=== PATIENT | female | born 1980 | race Asian ===

== ENCOUNTER 2017-05-31 14:05 | Emergency (ER) | payer OTHER ==
[~2017-05-31] VITALS: Ht 154.9 cm; Wt 77.1 kg
[2017-05-31 14:14] VITALS: BP_SYST 155
[2017-05-31 15:14] LABS: BASOPHILS % (AUTO) 0.4 % (0.0-2.0); EOSINOPHILS # (AUTO) 0.2 K/uL (0.0-0.4); EOSINOPHILS % (AUTO) 2.4 % (0.0-4.0); HEMATOCRIT 35.2 % (36-48); HEMOGLOBIN 11.8 g/dL (12.0-16.0); LYMPHOCYTES # (AUTO) 2.5 K/uL (1.0-5.5); LYMPHOCYTES % (AUTO) 28.9 % (20.5-51.5); MEAN CORPUSCULAR HEMOGLOBIN 28 pg (27-31); MEAN CORPUSCULAR HGB CONC 33 % (32-36); MEAN CORPUSCULAR VOLUME 84 fL (79.0-98.0); MONOCYTES # (AUTO) 0.6 K/uL (0.0-1.0); MONOCYTES % (AUTO) 6.4 % (1.7-9.3); NEUTROPHILS # (AUTO) 5.4 K/uL (1.8-7.7); NEUTROPHILS % (AUTO) 61.9 % (40.0-70.0); PLATELET COUNT (AUTO) 250 K/uL (130-430); RED BLOOD CELL COUNT(AUTO) 4.18 MIL/uL (4.2-6.2); RED CELL DISTRIBUTION WIDTH 13.9 % (9.0-15.0); WHITE BLOOD COUNT (AUTO) 8.7 K/uL (4.8-10.8)
[2017-05-31 15:42] LABS: CALCIUM 9.5 mg/dL (8.4-11.0); CREATININE 0.69 mg/dL (0.55-1.30); POTASSIUM 3.8 mmol/L (3.5-5.1)
[2017-05-31 15:47] LABS: BILIRUBIN,URINE NEGATIVE (NEGATIVE); BLOOD, URINE 3+ (NEGATIVE); CLARITY/URINE HAZY (CLEAR); COLOR,URINE YELLOW (YELLOW); GLUCOSE,URINE NEGATIVE (NEGATIVE); KETONES,URINE NEGATIVE (NEGATIVE); LEUKOCYTE ESTERASE ,URINE NEGATIVE (NEGATIVE); NITRITE, URINE NEGATIVE (NEGATIVE); PROTEIN URINE NEGATIVE (NEGATIVE); UROBILINOGEN,URINE 0.2 (0.2-1.0)
[2017-05-31 16:01] LABS: BACTERIA,URINE FEW /HPF (None Seen); RBC,URINE >100 /HPF (0-3); WBC,URINE 0-3 /HPF (0-3)
[2017-05-31 16:02] LABS: MUCUS,URINE None Seen /LPF (None Seen); URINE AMORPHOUS PHOSPHATES 1+ /HPF (None Seen)
[2017-05-31 16:10] LABS: ALBUMIN 3.5 g/dL (3.4-4.8); TOTAL BILIRUBIN 0.2 mg/dL (0.0-1.0)
[2017-05-31 17:51] VITALS: BP_SYST 161
[2017-05-31] MEDS ORDERED: ACETAMINOPHEN 500 MG TABLET PO ONE (18:30)
== END 2017-05-31 18:44 | disposition home or self-care (01) ==
LOC: SED 14:05
DX: O20.0 Threatened abortion (principal); I10 Essential (primary) hypertension; G43.909 Migraine, unspecified, not intractable, without status migrainosus; L40.9 Psoriasis, unspecified; Z3A.01 Less than 8 weeks gestation of pregnancy
CPT/HCPCS: 36415; 72170-TC; 76801; 76817; 80053; 81000-TC; 81025; 83690-TC; 84702-TC; 85025; 86901; 99285

== ENCOUNTER 2017-06-15 11:35 | Day surgery (SDC) | payer OTHER ==
[~2017-06-15] VITALS: Ht 154.9 cm; Wt 85.3 kg
[2017-06-15 12:31] LABS: HEMATOCRIT 26.6 % (36-48); HEMOGLOBIN 8.8 g/dL (12.0-16.0); MEAN CORPUSCULAR HEMOGLOBIN 28 pg (27-31); MEAN CORPUSCULAR HGB CONC 33 % (32-36); MEAN CORPUSCULAR VOLUME 86 fL (79.0-98.0); PLATELET COUNT (AUTO) 316 K/uL (130-430); RED BLOOD CELL COUNT(AUTO) 3.11 MIL/uL (4.2-6.2); WHITE BLOOD COUNT (AUTO) 19.8 K/uL (4.8-10.8)
[2017-06-15 12:33] LABS: BILIRUBIN,URINE 1+ (NEGATIVE); BLOOD, URINE 3+ (NEGATIVE); CLARITY/URINE SL HAZY (CLEAR); COLOR,URINE YELLOW (YELLOW); GLUCOSE,URINE NEGATIVE (NEGATIVE); KETONES,URINE 3+ (NEGATIVE); LEUKOCYTE ESTERASE ,URINE TRACE (NEGATIVE); NITRITE, URINE NEGATIVE (NEGATIVE); PROTEIN URINE 1+ (NEGATIVE); UROBILINOGEN,URINE 0.2 (0.2-1.0)
[2017-06-15 12:34] LABS: CREATININE 0.61 mg/dL (0.55-1.30); POTASSIUM 3.6 mmol/L (3.5-5.1)
[2017-06-15 12:48] LABS: BACTERIA,URINE FEW /HPF (None Seen); RBC,URINE 20-50 /HPF (0-3)
[2017-06-15 12:49] LABS: MUCUS,URINE 2+ /LPF (None Seen)
[2017-06-15] MEDS ORDERED: fentaNYL CITRATE/PF 100 MCG/2 ML AMP IVP PRN ×2 (13:15)
[2017-06-15] MEDS ORDERED: ONDANSETRON HCL 4 MG/2 ML VIAL IVP PRN ×2 (13:15→13:30)
[2017-06-15] MEDS ORDERED: KETOROLAC TROMETHAMINE 30 MG VIAL IVP PRN (13:15)
[2017-06-15] MEDS ORDERED: fentaNYL CITRATE/PF 100 MCG/2 ML AMP IVP ONE (13:30)
[2017-06-15] MEDS ORDERED: PROMETHAZINE HCL 25 MG/ML AMP IM PRN ×2 (13:30)
[2017-06-15] MEDS ORDERED: NS IRRIG SOLN 1000 ML IR ONE (13:30)
[2017-06-15] MEDS ORDERED: MIDAZOLAM HCL 5 MG/ML VIAL (VERSED) IV ONE (13:30)
[2017-06-15] MEDS ORDERED: SEVOFLURANE 15 MIN GAS INH ONE (13:30)
[2017-06-15] MEDS ORDERED: CLINDAMYCIN PHOSPHATE 600 MG/4 ML VIAL IV ONE (13:30)
[2017-06-15] MEDS ORDERED: SILVER NITRATE APPLICATOR 1 STICK STICK..EA. TP ONE (13:30)
[2017-06-15] MEDS ORDERED: LR 1,000 ML IV.SOLN IV ONE (13:30)
[2017-06-15] MEDS ORDERED: PROPOFOL 200MG/ 20ML VIAL (DIPRIVAN) IV ONE (13:30)
[2017-06-15 13:39] LABS: BAND % (MANUAL) 1 % (0-6)
[2017-06-15 13:40] LABS: BASOPHILS % (MANUAL) 0 % (0-2); EOSINOPHILS % (MANUAL) 1 % (0-7); LYMPHOCYTES % (MANUAL) 20 % (20-46); MONOCYTES % (MANUAL) 2 % (0-11)
[2017-06-15 14:14] VITALS: BP_SYST 118
[2017-06-15] MEDS ORDERED: DOXYCYCLINE HYCLATE 100 MG CAPSULE PO ONE ×2 (14:15→14:20)
[2017-06-16] MEDS ORDERED: DOXYCYCLINE HYCLATE 100 MG CAPSULE PO SCH (09:00)
== END 2017-06-15 15:00 | disposition home or self-care (01) ==
LOC: SDS 11:35 → SMU 13:21 → SDS 15:00
PROVIDERS: ATTEND Obstetrics & Gynecology
DX: O03.9 Complete or unspecified spontaneous abortion without complication (principal); D64.9 Anemia, unspecified; D72.829 Elevated white blood cell count, unspecified; G43.909 Migraine, unspecified, not intractable, without status migrainosus; Z3A.09 9 weeks gestation of pregnancy; Z79.899 Other long term (current) drug therapy
CPT/HCPCS: 36415; 59820; 80048; 81000; 85007; 85027; 86886; 86900; 86901; 87086; 88305; J2250; J2704; J3010; J3490; J7120

== ENCOUNTER 2018-10-17 15:30 | Emergency (ER) | payer OTHER ==
[~2018-10-17] VITALS: Ht 154.9 cm; Wt 81.6 kg
[2018-10-17 15:39] VITALS: BP_SYST 157
[2018-10-17 16:12] LABS: BASOPHILS # (AUTO) 0.1 K/uL (0.0-0.2); BASOPHILS % (AUTO) 0.8 % (0.0-2.0); EOSINOPHILS # (AUTO) 0.1 K/uL (0.0-0.4); EOSINOPHILS % (AUTO) 0.9 % (0.0-4.0); HEMOGLOBIN 10.7 g/dL (12.0-16.0); LYMPHOCYTES # (AUTO) 2.4 K/uL (1.0-5.5); MEAN CORPUSCULAR HEMOGLOBIN 25 pg (27-31); MEAN CORPUSCULAR HGB CONC 33 % (32-36); MEAN CORPUSCULAR VOLUME 76 fL (79.0-98.0); MONOCYTES # (AUTO) 0.6 K/uL (0.0-1.0); MONOCYTES % (AUTO) 6.6 % (1.7-9.3); NEUTROPHILS # (AUTO) 5.6 K/uL (1.8-7.7); NEUTROPHILS % (AUTO) 64.7 % (40.0-70.0); PLATELET COUNT (AUTO) 345 K/uL (130-430); RED BLOOD CELL COUNT(AUTO) 4.32 MIL/uL (4.2-6.2); RED CELL DISTRIBUTION WIDTH 17.5 % (9.0-15.0); WHITE BLOOD COUNT (AUTO) 8.7 K/uL (4.8-10.8)
[2018-10-17 16:32] LABS: CALCIUM 9.2 mg/dL (8.4-11.0); CREATININE 0.72 mg/dL (0.55-1.30); POTASSIUM 3.3 mmol/L (3.5-5.1)
[2018-10-17 16:37] LABS: ALBUMIN 3.7 g/dL (3.4-4.8); TOTAL BILIRUBIN 0.5 mg/dL (0.0-1.0)
[2018-10-17 16:43] LABS: BILIRUBIN,URINE NEGATIVE (NEGATIVE); BLOOD, URINE 3+ (NEGATIVE); CLARITY/URINE CLOUDY (CLEAR); COLOR,URINE RED (YELLOW); GLUCOSE,URINE NEGATIVE (NEGATIVE); KETONES,URINE NEGATIVE (NEGATIVE); LEUKOCYTE ESTERASE ,URINE TRACE (NEGATIVE); NITRITE, URINE NEGATIVE (NEGATIVE); PROTEIN URINE 2+ (NEGATIVE); UROBILINOGEN,URINE 0.2 (0.2-1.0)
[2018-10-17 16:54] LABS: BACTERIA,URINE FEW /HPF (None Seen); RBC,URINE >100 /HPF (0-3)
[2018-10-17 16:55] LABS: MUCUS,URINE None Seen /LPF (None Seen)
[2018-10-17] MEDS ORDERED: KETOROLAC TROMETHAMINE 60 MG/2 ML VIAL IM ONE (18:15)
[2018-10-17 18:30] VITALS: BP_SYST 150
[2018-10-20 02:06] LABS: CHLAMYDIA TRACHOMATIS NAA Negative (Negative); NEISSERIA GONORRHOEAE NAA Negative (Negative)
== END 2018-10-17 18:32 | disposition home or self-care (01) ==
LOC: SED 15:30
DX: N93.8 Other specified abnormal uterine and vaginal bleeding (principal); D64.9 Anemia, unspecified; E87.6 Hypokalemia; I10 Essential (primary) hypertension
CPT/HCPCS: 36415; 76830; 76857; 80053; 81000; 81025; 85025; 87086; 87491; 87591; 96372; 99284; J1885